=== PATIENT | female | born 1985 | race Caucasian/White ===

== ENCOUNTER 2022-06-10 08:59 | Outpatient (CLI) | payer BC, SELFPAY ==
[2022-06-11 13:43] LABS: Rheumatoid Factor < 10 IU/mL (0-14)
[2022-06-19 17:19] LABS: dRVVT Screen 29 sec (33-44)
== END 2022-06-10 09:00 | disposition home or self-care (01) ==
PROVIDERS: PCP Physician Assistant Medical; Visit Provider Physician Assistant Medical
DX: Z79.899 Other long term (current) drug therapy (principal); M79.643 Pain in unspecified hand; M79.673 Pain in unspecified foot; F41.8 Other specified anxiety disorders; Z84.0 Family history of diseases of the skin and subcutaneous tissue
CPT/HCPCS: 85610; 85613; 85730; 86200; 86431

== ENCOUNTER 2023-03-12 11:08 | Outpatient (CLI) | payer BC, SELFPAY | END 2023-03-12 11:09 | disposition home or self-care (01) | PROVIDERS: PCP Physician Assistant Medical; Visit Provider Dermatology | DX: B99.9 Unspecified infectious disease (principal) | CPT/HCPCS: 87070; 87186 ==

== ENCOUNTER 2023-05-12 11:54 | Outpatient (CLI) | payer BC, SELFPAY | END 2023-05-12 11:55 | disposition home or self-care (01) | LOC: NFLDREF 05-14 06:35 | PROVIDERS: PCP Physician Assistant Medical; Referring Provider Physician Assistant Medical; Visit Provider Dermatology | DX: B99.9 Unspecified infectious disease (principal); L98.9 Disorder of the skin and subcutaneous tissue, unspecified | CPT/HCPCS: 87070 ==

== ENCOUNTER 2023-12-03 15:43 | Outpatient (CLI) | payer BC, SELFPAY | END 2023-12-03 15:44 | disposition home or self-care (01) | LOC: FRMREF 15:44 | PROVIDERS: PCP Physician Assistant Medical; Visit Provider Dermatology | DX: L30.9 Dermatitis, unspecified (principal); Z13.228 Encounter for screening for other metabolic disorders | CPT/HCPCS: 80053 ==

== ENCOUNTER 2023-12-31 15:34 | Outpatient (CLI) | payer BC, SELFPAY | END 2023-12-31 15:35 | disposition home or self-care (01) | LOC: FRMREF 15:35 | PROVIDERS: PCP Physician Assistant Medical; Visit Provider Dermatology | DX: L40.9 Psoriasis, unspecified (principal); Z79.631 Long term (current) use of antimetabolite agent | CPT/HCPCS: 80053 ==